=== PATIENT | female | born 1975 | race Caucasian/White ===

== ENCOUNTER 2023-04-16 14:41 | Outpatient (CLI) | payer BC, SELFPAY ==
--- NOTE | 2023-04-16 15:00 | ECG_ITS ---
Measurements Intervals [place] Rate: 79 P: 50 SC: 169 QRS: 30 QRSD: 94 T: 29 QT: 377 QTc: 433 Interpretive Statements SINUS RHYTHM NORMAL ECG NO PREVIOUS ECG AVAILABLE FOR COMPARISON Electronically Signed On 04-16-2023 15:21:53 CDT by Tj Eubanks M.D.
[2023-04-16 15:43] LABS: Basophils Percent Auto 0.2 % (0.2-1.2); Eosinophils Absolute Auto 0.2 K/mm3 (0-0.3); Eosinophils Percent Auto 2.4 % (0-4.4); Hemoglobin 11.7 g/dL (12.0-15.0); Immature Granulocyte Absolute 0.03 K/mm3 (0.00-0.031); Immature Granulocyte Percent A 0.4 % (0-0.5); Lymphocytes Absolute Auto 2.24 K/mm3 (0.9-3.2); Mean Corpuscular HGB Conc 31.6 g/dl (32-36); Mean Corpuscular Hemoglobin 27.6 pg (26-34); Mean Corpuscular Volume 87.3 fl (80-100); Mean Platelet Volume 10.7 fl (7.4-10.4); Monocytes Absolute Auto 0.8 K/mm3 (0.1-0.6); Neutrophils Absolute Auto 5.1 K/mm3 (1.3-6.7); Platelet Count Result 278 k/mm3 (150-375); Red Blood Count 4.24 M/mm3 (4.2-5.4); Red Cell Distribution Width 15.8 % (11.5-14.5); White Blood Count 8.3 K/mm3 (4.5-10.0)
== END 2023-04-16 14:42 | disposition home or self-care (01) ==
LOC: ANHSURGERY 14:48
PROVIDERS: PCP Family Medicine; Visit Provider Obstetrics & Gynecology
DX: Z01.812 Encounter for preprocedural laboratory examination (principal); Z01.810 Encounter for preprocedural cardiovascular examination; D21.9 Benign neoplasm of connective and other soft tissue, unspecified; E78.00 Pure hypercholesterolemia, unspecified
CPT/HCPCS: 36415; 85025; 86850; 86900; 86901; 93005

== ENCOUNTER 2023-04-19 01:30 | Day surgery (SDC) | payer BC, SELFPAY ==
[2023-04-15 10:28] VITALS: BMI 32.4
--- NOTE | 2023-04-15 10:34 | PC.NURSE ---
Report to the Outpatient Waiting Room, entrance under the green pavilion located off [facility], at time 6:00 on date 04/19/23. Planned Procedure Time: 7:30. Time changes happen often and if your time is changed the preop area will call you the afternoon before. - You and your visitor will be asked to self-screen and do not enter if you have any COVID symptoms. - A mask is optional within the hospital at this time. Patients may have clear liquids (water, carbonated beverages, clear teas, apple juice) until 3 hours prior to surgery (4:30) with a maximum of 20 ounces. - No food from midnight until time of surgery Take the following medications with a SIP of water the morning of surgery: GABAPENTIN DO NOT STOP ANY OF YOUR OTHER PRESCRIPTION MEDICATIONS PRIOR TO SURGERY ?EXCEPT THE FOLLOWING Medications to discontinue per physician: VITAMINS/SUPPLEMENTS Date to take last dose: 04/15/23 Please no make-up, nail yakut, hairspray, perfume, deodorant, or body powder the day of surgery. No jewelry (including any body piercings) or valuables the day of surgery, leave them at home. Please take a shower or bath the night before, or the morning of, surgery with an antibacterial soap. Wear comfortable, loose fitting clothing. - Jewelry must be removed prior to entering the operating room. Rings and piercings that are not removed may be cut off. - The hospital will not accept responsibility for valuables. - Please leave all valuables, including medications, at home the day of surgery. If you are going home after surgery, a licensed log driver must drive you home. - NO public transportation without another adult if you receive anesthesia. - We recommend that an adult stay with you for 24 hours following discharge. - We also recommend that you do not drive, make important decision, drink alcoholic beverages, or take any drugs that were not prescribed by your health care provider for at least 24 hours after your discharge time. Follow any additional instructions given to you from your surgeon. If you or anyone in your household have experienced Covid symptoms in the past week, please notify your surgeon or the nurse liaison at the phone number below for possible testing. Telephone instructions given to PT - JALYN ROGERS and asked if any additional questions and then verbalized understanding. Patient advised to call surgeon office or pre surgery nurse liaison [phone] if any additional questions.
--- NOTE | 2023-04-16 12:56 | PM.IMHP ---
H&P: HPI History of Present Illness Date/Time: 04/16/23 12:56 Chief Complaint: Uterine fibroids/heavy bleeding Narrative: This is a 40-year-old multiparous patient who is admitted for robotic hysterectomy and bilateral salpingectomy secondary to enlarged fibroid uterus. The patient ultrasound finding as CT which showed enlarged uterus. Ultrasound imaging showed multiple uterine fibroids. She opts remove the uterus and the tubes in the cervix. Risks and benefits reviewed including but not exclusive of , aspiration pneumonia, bleeding, transfusion, perforation injury to bowel, bladder, ureters, or other internal organs with need for open laparotomy. She received the ACOG handout entitled hysterectomy as well as the de Roman handout. All questions were answered to her satisfaction. She asked to proceed PMF Social History Social History Smoking status: Never smoker Alcohol intake: current Alcohol use details: VERY RARE Substance use: never Substance use type: does not use Living arrangements: with family Spiritual care concerns: No Meds Home Medications and Allergies Home Medications Medication Instructions Recorded Confirmed Type cetirizine 10 mg tablet (Zyrtec) 20 mg PO DAILY 04/15/23 04/15/23 History cholecalciferol (vitamin D3) 125 125 mcg PO DAILY 04/15/23 04/15/23 History mcg (5,000 unit) tablet (Vitamin D3) ferrous sulfate 325 mg (65 mg 325 mg PO DAILY 04/15/23 04/15/23 History iron) tablet (Iron (ferrous sulfate)) gabapentin 300 mg capsule 300 mg PO BID 04/15/23 04/15/23 History ibuprofen 600 mg tablet 600 mg PO TID PRN Pain 04/15/23 04/15/23 History pravastatin 40 mg tablet 40 mg PO HS 04/15/23 04/15/23 History sumatriptan succinate 25 mg tablet 25 mg PO ONCE 04/15/23 04/15/23 History Allergies Allergy/AdvReac Type Severity Reaction Status Date / Time metformin Allergy Migraine Verified 04/15/23 10:28 prednisone Allergy Migraine Verified 04/15/23 10:24 propranolol Allergy Dizziness Verified 04/15/23 10:24 tramadol Allergy Hives Verified 04/15/23 10:24 Exam Const: General: cooperative, healthy appearing, comfortable and overweight Orientation/consciousness: oriented to person, oriented to place and oriented to time HENMT: Head: normal to inspection Resp: Effort & Inspection: normal respiratory effort Cardio: Rate: regular rate Rhythm: regular rhythm Heart sounds: S1 normal heart sound present and S2 normal heart sound present GI: Inspection: normal to inspection Auscultation: normal bowel sounds : External Female Exam: normal external appearance Speculum Exam - Vagina: normal appearance of the vagina Speculum Exam - Cervix: normal appearance of the cervix Bimanual exam- vagina & uterus: enlarged Bimanual Exam- Adnexa, other: normal adnexae Assessment and Plan Assessment and plan (1) Uterine fibroid: Code(s): D25.9 - Leiomyoma of uterus, unspecified Status: Acute Plan Robotic total vaginal hysterectomy bilateral salpingectomy
--- NOTE | 2023-04-18 10:17 | P.PNAN_ITS ---
Anes - Initial Pre Proc Eval Procedure: Operation Date: 04/19/23 07:30 Proposed Procedures p Robotic Assisted Total Vaginal Hysterectomy with Bilateral Salpingectomy - Ajay Melgar MD Date/Time: 04/18/23 10:17 Surgeon: Ajay Melgar MD Pre Op Diagnosis: Irg Bleeding, Enlarg Uterine, Fibroids Patient Data Age: 48 Gender: F Height: 1.7 m Weight: 93.9 kg Allergies Allergy/AdvReac Type Severity Reaction Status Date / Time metformin Allergy Migraine Verified 04/19/23 06:17 prednisone Allergy Migraine Verified 04/19/23 06:17 propranolol Allergy Dizziness Verified 04/19/23 06:17 tramadol Allergy Hives Verified 04/19/23 06:17 Home Medications Medication Instructions Recorded Confirmed Type cetirizine 10 mg tablet (Zyrtec) 20 mg PO DAILY 04/15/23 04/15/23 History cholecalciferol (vitamin D3) 125 125 mcg PO DAILY 04/15/23 04/19/23 History mcg (5,000 unit) tablet (Vitamin D3) ferrous sulfate 325 mg (65 mg 325 mg PO DAILY 04/15/23 04/19/23 History iron) tablet (Iron (ferrous sulfate)) gabapentin 300 mg capsule 300 mg PO BID 04/15/23 04/19/23 History ibuprofen 600 mg tablet 600 mg PO TID PRN Pain 04/15/23 04/15/23 History pravastatin 40 mg tablet 40 mg PO HS 04/15/23 04/15/23 History sumatriptan succinate 25 mg tablet 25 mg PO ONCE 04/15/23 04/15/23 History hydrocodone 5 mg-acetaminophen 325 1 tablet PO Q4H PRN pain #20 tabs 04/19/23 Rx mg tablet Patient hx anesthesia problems: none Family hx anesthesia problems: none Results Review: All pre-operative results and documents have been reviewed as part of the pre- operative evaluation. [facility] Past Medical History Medical History (Updated 04/18/23 @ 10:17 by Huber Lopez DO) Anxiety Celiac disease Depression Fibroid History of colon cancer Hyperlipidemia Social History Social History Smoking status: Never smoker Alcohol intake: current Alcohol use details: VERY RARE Substance use: never Substance use type: does not use Living arrangements: with family Spiritual care concerns: No Anes - Eval Final PreProcedure Day of Procedure 04/18/23 10:17 Patient weight: obese Heart: regular rate and rhythm Lungs: clear to auscultation Airway: Mallampati scale class II Neurological: alert and oriented Last oral intake: >/= 8 hours ASA classification: II Emergent: no Anesthetic plan: proceed Anesthesia type and monitoring: general ETT and standard monitoring Results Review: All pre-operative results and documents have been reviewed as part of the pre- operative evaluation. Informed Consent: The patient's anesthetic plan and its attendant risks and benefits were discussed with the patient/family/POA. Questions were solicited and answers provided to the satisfaction of the patient/family/POA.
[2023-04-19] VITALS (11 sets, daily range): BP systolic 109–137; BP diastolic 64–88; PULSE 75–96; RESP 12–18; TEMP 36.4–37.2; O2SAT 97–100; BMI 32.3
--- NOTE | 2023-04-19 06:38 | WPDHPUPDATE1 ---
History and Physical Update Update Date/Time: 04/19/23 06:38 History and Physical has been reviewed, including an updated exam of the patient. There are NO changes in the patient's condition. Risks, benefits, and alternatives have been discussed and questions answered. Patient agrees to proceed with procedure.
[2023-04-19] MEDS: LACTATED RINGERS 1,000 ML 30 ML IV CONT ×2 (07:00→09:45)
[2023-04-19] MEDS: KETOROLAC 15 MG/ML VIAL (*BKC) IV PUSH (07:11)
[2023-04-19] MEDS: ACETAMINOPHEN 500 MG TABLET 1000 MG PO (07:11)
[2023-04-19 07:17] LABS: Glucose Point of Care 107 mg/dl (65-105)
[2023-04-19] MEDS: ceFAZolin 2 GM/D5W 50 ML 2 GM/50 ML BAG IVPB (07:28)
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
[2023-04-19 08:58] LABS: Glucose Point of Care 141 mg/dl (65-105)
[2023-04-19] MEDS: fentaNYL CITRATE INJ (*CRX) 100 MCG/2 ML VIAL 25 MCG IV PUSH ×4 (09:09→09:29)
--- NOTE | 2023-04-19 10:17 | ADMGEN ---
This patient, Ioana Lala, was admitted to OB 2nd Floor Room 289-00. Patient/family oriented to hospital policies and general routines including ID bracelet, bed and alarms, visiting hours, pain management, procedures, bathroom and other care routines, personal items, smoking policy, room service/diet, and visiting hours. Information on how to activate the Rapid Response Team has been discussed. Patient/Family are encouraged to report perceived risks to care and to ask questions if they do not understand what they are told or what they should do.
--- NOTE | 2023-04-19 10:36 | PM.DS ---
DS: Admitting Diagnosis Discharge Date 04/21/23 Admitting Diagnosis symptomatic uterine fibroids DS: Discharge Diagnosis Discharge Diagnosis (1) Uterine fibroid: Code(s): D25.9 - Leiomyoma of uterus, unspecified Status: Acute DS: Summary Hospital Course Reason for hospitalization: patient was admitted on 04/19/2023 for robotic hysterectomy and bilateral salpingectomy Hospital Course: patient underwent an unremarkable robotic total vaginal hysterectomy and bilateral salpingectomy. Her hospital course unremarkable. She remained afebrile. She was up, voiding difficulty, ambulating, eating regular diet, and generally without complaints. Time Spent with Patient Time attestation: Total time spent providing and/or coordinating discharge services: Exam Const: General: cooperative, healthy appearing and comfortable Nutritional Appearance: average body habitus Orientation/consciousness: oriented to person, oriented to place and oriented to time Resp: Effort & Inspection: normal respiratory effort Cardio: Rate: regular rate Rhythm: regular rhythm Heart sounds: S1 normal heart sound present and S2 normal heart sound present GI: Inspection: normal to inspection and incision ( Wounds are clean dry and intact) DS: Data Data Completed and Pending Pending studies at discharge: Pending at discharge 04/19/23 08:04 Surgical [PTH] Routine Labs on day of discharge: Labs from last 24 hours 04/19/23 04/19/23 08:52 07:08 POC Capillary Glucose 141 H 107 H Discharge Plan Discharge Patient Disposition: Home, Self-Care Patient Instructions: Laparoscopic Hysterectomy (DC) Stand Alone Forms: General Discharge Instructions Follow-up/Referrals: Ajay Siu MD [Physician] - 2 Weeks Discharge Medications: New hydrocodone-acetaminophen 5-325 mg tablet 1 tablet PO Q4H PRN (Reason: pain) Qty: 20 0RF Continued cetirizine [Zyrtec] 10 mg Tablet 20 mg PO DAILY pravastatin 40 mg Tablet 40 mg PO HS sumatriptan succinate 25 mg Tablet 25 mg PO ONCE ferrous sulfate [Iron (ferrous sulfate)] 325 mg (65 mg iron) Tablet 325 mg PO DAILY gabapentin 300 mg Capsule 300 mg PO BID ibuprofen 600 mg Tablet 600 mg PO TID PRN (Reason: Pain) cholecalciferol (vitamin D3) [Vitamin D3] 125 mcg (5,000 unit) Tablet 125 mcg PO DAILY
[2023-04-19] MEDS: DEXTROSE 5%/LACTATED RINGERS 1,000 ML 125 ML IV CONT (10:43)
[2023-04-19] MEDS: KETOROLAC 30 MG/ML VIAL (*BKC) IV PUSH (10:43)
[2023-04-19] MEDS: HYDROcodone/acetaminophen (*CRX) 5-325 MG TABLET 1 TAB PO ×2 (13:04→21:06)
[2023-04-19] MEDS: DOCUSATE SODIUM 100 MG CAPSULE PO (13:04)
[2023-04-19] MEDS: ENOXAPARIN 40 MG/0.4 ML SYRINGE SUB-Q (13:04)
[2023-04-19] MEDS: IBUPROFEN 600 MG TABLET PO (17:18)
[2023-04-20 00:50] VITALS: BP 91/53; PULSE 72; RESP 16; TEMP 36.4
[2023-04-20] MEDS: IBUPROFEN 600 MG TABLET PO ×2 (00:53→07:51)
[2023-04-20 05:10] VITALS: BP 107/55; PULSE 68; RESP 16; TEMP 36.5
[2023-04-20] MEDS: HYDROcodone/acetaminophen (*CRX) 5-325 MG TABLET 1 TAB PO ×2 (05:13→07:51)
[2023-04-20 05:31] LABS: Basophils Percent Auto 0.2 % (0.2-1.2); Eosinophils Percent Auto 0.1 % (0-4.4); Hematocrit 33.8 % (37.0-47.0); Hemoglobin 10.8 g/dL (12.0-15.0); Immature Granulocyte Absolute 0.05 K/mm3 (0.00-0.031); Immature Granulocyte Percent A 0.4 % (0-0.5); Lymphocytes Absolute Auto 2.48 K/mm3 (0.9-3.2); Lymphocytes Percent Auto 20.2 % (18.3-44.2); Mean Corpuscular Hemoglobin 28.1 pg (26-34); Mean Corpuscular Volume 87.8 fl (80-100); Mean Platelet Volume 10.2 fl (7.4-10.4); Monocytes Absolute Auto 0.8 K/mm3 (0.1-0.6); Monocytes Percent Auto 6.7 % (2.6-8.5); Neutrophils Absolute Auto 8.9 K/mm3 (1.3-6.7); Neutrophils Percent Auto 72.4 % (45.5-73.1); Platelet Count Result 260 k/mm3 (150-375); Red Blood Count 3.85 M/mm3 (4.2-5.4); Red Cell Distribution Width 14.8 % (11.5-14.5); White Blood Count 12.3 K/mm3 (4.5-10.0)
[2023-04-20 07:30] VITALS: BP 103/70; PULSE 69; RESP 16; TEMP 36.7; O2SAT 100
[2023-04-20] MEDS: DOCUSATE SODIUM 100 MG CAPSULE PO (07:51)
--- NOTE | 2023-04-20 10:31 | PM.GYNPNOP ---
[employer] - A/P Assessment and plan (1) Uterine fibroid: Code(s): D25.9 - Leiomyoma of uterus, unspecified Status: Acute Assessment and Plan: A: POD#1, doing well. P: Home to f/u 2 weeks. Postoperative Procedures: Procedures Operation Date: 04/19/23 07:30 Actual Procedure Side Surgeon p Robotic Assisted Total Vaginal Hysterectomy with Bilateral Salpingectomy Bilateral Ajay Melgar MD Time Spent With Patient Time: Total time spent is greater than 50% in coordination of care (as documented) at patient's floor/unit and/or counseling patient: Time with patient: less than 15 minutes [employer]- PN:Subj Post-Op Subjective Date/time seen: 04/20/23 10:31 Interval history: Pain OK. Tolerating diet. Voiding. Would like to go home. Exam Narrative: AVSS I/O OK ABD soft, nontender. Incisions c/d/i. EXT nontender [employer]TER - PN: Obj Data Vital Signs Vital Signs: Vital Signs - 24 hr 04/19/23 15:00 04/19/23 15:00 04/19/23 21:00 Temperature 36.9 C 36.4 C Pulse Rate 96 81 Respiratory Rate 16 16 Blood Pressure 117/71 109/64 Pulse Oximetry 99 97 Oxygen Delivery Room Air 04/20/23 00:50 04/20/23 05:10 04/20/23 07:30 Temperature 36.4 C L 36.5 C 36.7 C Pulse Rate 72 68 69 Respiratory Rate 16 16 16 Blood Pressure 91/53 L 107/55 L 103/70 Pulse Oximetry 100 Oxygen Delivery Intake/Output Intake/Output: Intake & Output 04/17/23 04/18/23 04/19/23 04/20/23 23:59 23:59 23:59 23:59 Intake Total 1855 640 Output Total 2100 550 Balance -245 90 Meds/Results Medications: Active Medications Generic Name Dose Route Start Last Admin Trade Name Freq PRN Reason Stop Dose Admin Hydrocodone Bitart/Acetaminophen 1 tab 04/19/23 10:12 04/20/23 07:51 Hydrocodone/Acetaminophen (*Crx) 5-325 Mg Tablet PO 1 tab Q3H PRN Administration Pain Rated 5 or Less Hydrocodone Bitart/Acetaminophen 1 tab 04/19/23 10:12 Hydrocodone/Acetaminophen (*Crx) 10-325 Mg Tablet PO Q3H PRN Pain Rated 6 or Greater Docusate Sodium 100 mg 04/19/23 10:12 04/20/23 07:51 Docusate Sodium 100 Mg Capsule PO 100 mg BID ANABEL Administration Enoxaparin Sodium 40 mg 04/19/23 10:12 04/19/23 13:04 Enoxaparin 40 Mg/0.4 Ml Syringe SUB-Q 40 mg DAILY ANABEL Administration Ibuprofen 600 mg 04/19/23 10:12 04/20/23 07:51 Ibuprofen 600 Mg Tablet PO 600 mg Q6H PRN Administration Cramping Ketorolac Tromethamine 30 mg 04/19/23 10:12 04/19/23 10:43 Ketorolac 30 Mg/Ml Vial (*Bkc) IV PUSH 04/24/23 10:11 30 mg Q6H PRN Administration Pain Rated 4-6 Naloxone HCl 0.1 mg 04/19/23 10:12 Naloxone Hcl 0.4 Mg/Ml Vial IV PUSH Q2M PRN Respiratory rate less than 10 Ondansetron HCl 4 mg 04/19/23 10:12 Ondansetron Inj 4 Mg/2 Ml Vial IV PUSH Q6H PRN Nausea And Vomiting Simethicone 80 mg 04/19/23 10:12 Simethicone 80 Mg Tab.Chew PO Q2H PRN Gas Labs 04/20/23 05:09 Labs: Laboratory Results - last 24 hr 04/20/23 05:09 WBC 12.3 H RBC 3.85 L Hgb 10.8 L Hct 33.8 L MCV 87.8 MCH 28.1 MCHC 32.0 RDW 14.8 H Plt Count 260 MPV 10.2 Immature Gran % (Auto) 0.4 Neut % (Auto) 72.4 Lymph % (Auto) 20.2 [place] % (Auto) 6.7 Eos % (Auto) 0.1 Baso % (Auto) 0.2 Lymph # (Auto) 2.48 [place] # (Auto) 0.8 H Eos # (Auto) 0.0 Baso # (Auto) 0.0 Abs Immat Gran (auto) 0.05 H Absolute Neuts (auto) 8.9 H Absolute Nucleated RBC 0.0 Nucleated RBC % 0.0
--- NOTE | 2023-04-20 10:32 | PM.DS ---
DS: Admitting Diagnosis Discharge Date 04/20/23 Admitting Diagnosis Fibroid uterus DS: Discharge Diagnosis Discharge Diagnosis (1) Uterine fibroid: Code(s): D25.9 - Leiomyoma of uterus, unspecified Status: Acute DS: Summary Hospital Course Hospital Course: She was admitted for scheduled surgery. See op note. She did well and was able to go home on POD1. Time Spent with Patient Time attestation: Total time spent providing and/or coordinating discharge services: DS: Data Data Completed and Pending Pending studies at discharge: Pending at discharge 04/19/23 08:04 Surgical [PTH] Routine Labs on day of discharge: Labs from last 24 hours 04/20/23 05:09 WBC 12.3 H RBC 3.85 L Hgb 10.8 L Hct 33.8 L MCV 87.8 MCH 28.1 MCHC 32.0 RDW 14.8 H Plt Count 260 MPV 10.2 Immature Gran % (Auto) 0.4 Neut % (Auto) 72.4 Lymph % (Auto) 20.2 [place] % (Auto) 6.7 Eos % (Auto) 0.1 Baso % (Auto) 0.2 Lymph # (Auto) 2.48 [place] # (Auto) 0.8 H Eos # (Auto) 0.0 Baso # (Auto) 0.0 Abs Immat Gran (auto) 0.05 H Absolute Neuts (auto) 8.9 H Absolute Nucleated RBC 0.0 Nucleated RBC % 0.0 Discharge Plan Discharge Patient Disposition: Home, Self-Care Patient Instructions: Laparoscopic Hysterectomy (DC) Stand Alone Forms: General Discharge Instructions Follow-up/Referrals: Ajay Siu MD [Physician] - 2 Weeks Discharge Medications: New hydrocodone-acetaminophen 5-325 mg tablet 1 tablet PO Q4H PRN (Reason: pain) Qty: 20 0RF Continued cetirizine [Zyrtec] 10 mg Tablet 20 mg PO DAILY pravastatin 40 mg Tablet 40 mg PO HS sumatriptan succinate 25 mg Tablet 25 mg PO ONCE ferrous sulfate [Iron (ferrous sulfate)] 325 mg (65 mg iron) Tablet 325 mg PO DAILY gabapentin 300 mg Capsule 300 mg PO BID ibuprofen 600 mg Tablet 600 mg PO TID PRN (Reason: Pain) cholecalciferol (vitamin D3) [Vitamin D3] 125 mcg (5,000 unit) Tablet 125 mcg PO DAILY
== END 2023-04-20 11:12 | disposition home or self-care (01) ==
LOC: ANHSURGERY 06:39 → ANHOB2 10:14
PROVIDERS: PCP Family Medicine; Visit Provider Obstetrics & Gynecology
PROC: (CPT 58552; principal; 2023-04-19 07:30)
DX: D25.1 Intramural leiomyoma of uterus (principal); N83.8 Other noninflammatory disorders of ovary, fallopian tube and broad ligament; N93.9 Abnormal uterine and vaginal bleeding, unspecified; E78.5 Hyperlipidemia, unspecified; K90.0 Celiac disease; Z85.038 Personal history of other malignant neoplasm of large intestine; E66.9 Obesity, unspecified; Z68.32 Body mass index [BMI] 32.0-32.9, adult
CPT/HCPCS: 58552; S2900; 36415; 82948; 85025; 88307; 99199; A9270; J0330; J0690; J1100; J1650; J1885; J2250; J2405; J2704; J3010; J7030; J7120; J7121